=== PATIENT | male | born 1970 | race Caucasian/White ===

== ENCOUNTER 2020-09-14 20:35 | Emergency (ER) | payer BC ==
[2020-09-14 20:40] VITALS: TEMP 97.8; BMI 28.1
[2020-09-14 22:25] LABS: BASO % 0.5 % (0-2.0); EOS % 0.7 % (0-4.5); HEMATOCRIT 45.8 % (35.4-49); LYMPH % 26.9 % (8-40); MCH 28.8 pg (25.7-33.7); MCHC 34.8 g/dl (32.0-35.9); MEAN CELL VOLUME 82.7 fl (80-96); MEAN PLT VOLUME 7.8 fl (7.5-11.1); MONO % 9.4 % (3.8-10.2); NEUT % 62.5 % (42.8-82.8); PLATELET COUNT 212 10^3/uL (134-434); RBC 5.54 M/mm3 (4.00-5.60); WHITE BLOOD COUNT 7.9 K/mm3 (4.0-10.0)
[2020-09-14 22:44] LABS: CHLORIDE 101 mmol/L (98-107); SODIUM 137 mmol/L (136-145)
[2020-09-14 22:47] LABS: CALCIUM 9.6 mg/dL (8.5-10.1)
[2020-09-14 22:48] LABS: ALBUMIN 4.4 g/dl (3.4-5.0); ANION GAP 8 MMOL/L (8-16); BLOOD UREA NITROGEN 16.8 mg/dL (7-18); CO2 28 mmol/L (21-32); GLUCOSE,RANDOM 99 mg/dL (74-106)
[2020-09-14 22:50] LABS: SGOT/AST 20 U/L (15-37); SGPT/ALT 33 U/L (13-61)
[2020-09-14 22:52] LABS: BILIRUBIN,TOTAL 0.3 mg/dL (0.2-1); TOT PROT 7.7 g/dl (6.4-8.2)
[2020-09-14 22:54] LABS: ALK PHOS 61 U/L (45-117)
[2020-09-14 23:34] VITALS: BP 170/102; PULSE 86
== END 2020-09-15 02:30 | disposition home or self-care (01) ==
LOC: JER 20:35
DX: R42 Dizziness and giddiness (principal)
CPT/HCPCS: 36415; 80053; 82550; 82553; 84436; 84443; 84484; 85025; 93005; 93010; 99284-25

== ENCOUNTER 2020-10-24 04:46 | Day surgery (SDC) | payer BC ==
[2020-10-22 14:49] VITALS: BMI 28.1
[2020-10-24 11:23] VITALS: TEMP 97
[2020-10-24 12:48] VITALS: BP 130/94; PULSE 83
== END 2020-10-24 11:55 | disposition home or self-care (01) ==
LOC: JASU-ENDO 04:46
PROVIDERS: ATTEND Internal Medicine Gastroenterology
PROC: 0DB78ZX Excision of Stomach, Pylorus, Via Natural or Artificial Opening Endoscopic, Diagnostic (ICD-10-PCS; 2020-10-24)
PROC: 0DJD8ZZ Inspection of Lower Intestinal Tract, Via Natural or Artificial Opening Endoscopic (ICD-10-PCS; principal; 2020-10-24 10:30)
DX: Z12.11 Encounter for screening for malignant neoplasm of colon (principal); R12 Heartburn
CPT/HCPCS: 43239; G0121; 88305-TC; 88342-TC

== ENCOUNTER 2023-05-19 11:49 | Emergency (ER) | payer OTHER, BC ==
[2023-05-19 12:02] VITALS: PULSE 106; RESP 18; TEMP 97; BMI 28.1
[2023-05-19] MEDS ORDERED: DIPHTH,PERTUSS(ACELL),TET 0.5 ML DISP.SYRIN IM ONE (13:07)
[2023-05-19] MEDS: DIPHTH,PERTUSS(ACELL),TET 0.5 ML DISP.SYRIN IM ONE (13:08)
[2023-05-19 14:02] VITALS: BP 178/99
== END 2023-05-19 14:02 | disposition home or self-care (01) ==
LOC: JERFT 11:49
PROC: 0HQGXZZ Repair Left Hand Skin, External Approach (ICD-10-PCS; principal; 2023-05-19)
PROC: 3E0234Z Introduction of Serum, Toxoid and Vaccine into Muscle, Percutaneous Approach (ICD-10-PCS; 2023-05-19)
DX: S61.012A Laceration without foreign body of left thumb without damage to nail, initial encounter (principal); W26.0XXA Contact with knife, initial encounter; Y93.89 Activity, other specified; Y92.009 Unspecified place in unspecified non-institutional (private) residence as the place of occurrence of the external cause
CPT/HCPCS: 90715; 99282-25

== ENCOUNTER 2023-05-26 10:44 | Emergency (ER) | payer OTHER, BC ==
[2023-05-26 11:00] VITALS: RESP 18; TEMP 97.7; BMI 28.1
[2023-05-26 11:39] VITALS: BP 154/96; PULSE 90
== END 2023-05-26 11:40 | disposition home or self-care (01) ==
LOC: JERFT 10:44
DX: L08.9 Local infection of the skin and subcutaneous tissue, unspecified (principal); Z48.02 Encounter for removal of sutures
CPT/HCPCS: 99283-25

== ENCOUNTER 2024-07-29 20:04 | Observation (INO) | payer BC, OTHER ==
[2024-07-29] MEDS ORDERED: KETOROLAC TROMETHAMINE 60 MG/2 ML VIAL ONE (20:29)
[2024-07-29] MEDS: KETOROLAC TROMETHAMINE 60 MG/2 ML VIAL IM ONE (20:36)
[2024-07-29] MEDS ORDERED: LIDOCAINE 5% TOPICAL PATCH ONE (21:56)
[2024-07-29] MEDS ORDERED: ACETAMINOPHEN INJECTION 100 ML ONE (21:56)
[2024-07-29 22:00] LABS: ABSOLUTE IMMATURE GRANULOCYTES 0.02 x10^3/uL (0.0-0.031); BASOPHILS # 0.03 x10^3/uL (0.01-0.08); EOSINOPHIL % 0.2 % (0.8-7.0); EOSINOPHILS # 0.02 x10^3/uL (0.04-0.54); HEMATOCRIT 41.3 % (40.1-51.0); HEMOGLOBIN 14.7 g/dL (13.7-17.5); MCHC 35.6 g/dl (32.3-36.5); MEAN CELL VOLUME 82.1 fl (79.0-92.2); MEAN PLT VOLUME 9.6 fl (9.4-12.4); MONOCYTE # 0.75 x10^3/uL (0.30-0.82); MONOCYTE % 7.9 % (5.3-12.2); PLATELET COUNT 202 x10^3/uL (163-337); RDW 11.8 % (12.2-16.1)
[2024-07-29] MEDS: ACETAMINOPHEN 1000 MG/100 ML BAG IVPB ONE (22:03)
[2024-07-29 22:17] LABS: INR 1.05 (0.83-1.09); PROTHROMBIN TIME (PATIENT) 11.6 SEC (9.7-13.0)
[2024-07-29] MEDS: LIDOCAINE 5% TOPICAL PATCH TP ONE (22:19)
[2024-07-29 22:29] LABS: ALBUMIN 4.7 g/dl (3.4-5.0); BILIRUBIN,TOTAL 0.6 mg/dl (0.2-1); CALCIUM 9.3 mg/dl (8.5-10.1); CREATININE 0.7 mg/dl (0.6-1.3); POTASSIUM 4.2 mmol/L (3.5-5.1); TOT PROT 6.7 g/dl (6.4-8.2)
[2024-07-29] MEDS ORDERED: morphine CARPU-JECT 2 MG/1 ML DISP.SYRIN IVPUSH ONE (22:34)
[2024-07-29] MEDS ORDERED: methylPREDNISolone NA SUCC 125 MG/2 ML VIAL ONE (22:39)
[2024-07-29] MEDS ORDERED: morphine SULFATE 4 MG/ML VIAL ONE (22:39)
[2024-07-29] MEDS: morphine CARPU-JECT 4 MG/1 ML DISP.SYRIN IVPUSH ONE (22:51)
[2024-07-29] MEDS: SODIUM CHLORIDE 1,000 ML IV STA (22:52)
[2024-07-29] MEDS: methylPREDNISolone NA SUCC 125 MG/2 ML VIAL IVPB ONE (22:53)
[2024-07-30] MEDS ORDERED: HYDROmorphone HCL/PF 1 MG/ML VIAL ONE (00:03)
[2024-07-30] MEDS: HYDROmorphone HCl 2 MG/ML VIAL IVPB ONE ×2 (00:11→13:40)
[2024-07-30 06:23] VITALS: BMI 28.8
[2024-07-30] MEDS ORDERED: KETOROLAC TROMETHAMINE 15 MG/ML VIAL IVPUSH PRN (07:19)
[2024-07-30] MEDS: LEVOTHYROXINE NA 150 MCG TABLET PO SCH (07:44)
[2024-07-30 09:35] LABS: HEMATOCRIT 45.4 % (40.1-51.0); HEMOGLOBIN 16.3 g/dL (13.7-17.5); MCHC 35.9 g/dl (32.3-36.5); MEAN CELL VOLUME 80.6 fl (79.0-92.2); MEAN PLT VOLUME 10.1 fl (9.4-12.4); PLATELET COUNT 216 x10^3/uL (163-337); RDW 11.7 % (12.2-16.1)
[2024-07-30 10:09] LABS: CREATININE 0.6 mg/dl (0.6-1.3); MAGNESIUM 1.7 mg/dL (1.8-2.4); PHOSPHOROUS 3.6 (2.5-4.9); POTASSIUM 4.3 mmol/L (3.5-5.1)
[2024-07-30] MEDS: amLODIPine BESYLATE 5 MG TABLET (FP) PO SCH (12:55)
[2024-07-30] MEDS: metoPROLOL SUCCINATE 25 MG TAB.SR.24H (FP) PO SCH (12:55)
[2024-07-30] MEDS: MULTIVITAMINS (DAILY MVI) TABLET (FP) PO SCH (12:55)
[2024-07-30] MEDS: LIDOCAINE 5% TOPICAL PATCH TP SCH (13:40)
[2024-07-30] MEDS: LIDOCAINE PATCH REMOVAL MC ONE (13:40)
[2024-07-30 21:52] LABS: URINE APPEARANCE CLEAR; URINE BILIRUBIN NEGATIVE (NEGATIVE); URINE COLOR YELLOW; URINE GLUCOSE (UA) NEGATIVE (NEGATIVE); URINE KETONE NEGATIVE (NEGATIVE); URINE LEUK ESTERASE NEGATIVE (NEGATIVE); URINE NITRITE NEGATIVE (NEGATIVE); URINE PROTEIN NEGATIVE (NEGATIVE); URINE UROBILINOGEN 0.2 (0.2-1.0)
[2024-07-30 21:53] LABS: URINE RBC 0-3 /hpf (0-4); URINE WBC 0-3 (NEGATIVE)
[2024-07-30] MEDS: clonazePAM 0.5 MG TABLET PO PRN (21:55)
[2024-07-30] MEDS: LIDOCAINE PATCH REMOVAL MC SCH (22:20)
[2024-07-31 08:45] LABS: ABSOLUTE IMMATURE GRANULOCYTES 0.03 x10^3/uL (0.0-0.031); BASOPHILS # 0.01 x10^3/uL (0.01-0.08); EOSINOPHIL % 0.2 % (0.8-7.0); EOSINOPHILS # 0.02 x10^3/uL (0.04-0.54); HEMATOCRIT 46.1 % (40.1-51.0); MCHC 34.7 g/dl (32.3-36.5); MEAN CELL VOLUME 82.5 fl (79.0-92.2); MEAN PLT VOLUME 9.9 fl (9.4-12.4); MONOCYTE % 12.4 % (5.3-12.2); PLATELET COUNT 227 x10^3/uL (163-337); RDW 12.2 % (12.2-16.1)
[2024-07-31 09:25] LABS: ALBUMIN 4.7 g/dl (3.4-5.0); BILIRUBIN,TOTAL 0.8 mg/dl (0.2-1); CALCIUM 9.5 mg/dl (8.5-10.1); CREATININE 0.8 mg/dl (0.6-1.3); POTASSIUM 4.7 mmol/L (3.5-5.1); TOT PROT 6.9 g/dl (6.4-8.2)
[2024-07-31] MEDS: ACETAMINOPHEN 1000 MG/100 ML BAG IVPB PRN (17:57)
[2024-08-01 06:35] VITALS: TEMP 97.5
[2024-08-01] MEDS ORDERED: traMADol HCL 50 MG TABLET PO PRN (07:31)
[2024-08-01 10:04] VITALS: BP 147/86; PULSE 92; RESP 18
== END 2024-08-01 11:00 | disposition home or self-care (01) ==
LOC: FER 20:04 → FM/S 07-30 04:17
PROVIDERS: ATTEND Internal Medicine
PROC: 3E033NZ Introduction of Analgesics, Hypnotics, Sedatives into Peripheral Vein, Percutaneous Approach (ICD-10-PCS; principal; 2024-07-30)
PROC: 3E0233Z Introduction of Anti-inflammatory into Muscle, Percutaneous Approach (ICD-10-PCS; 2024-07-30)
PROC: 3E033GC Introduction of Other Therapeutic Substance into Peripheral Vein, Percutaneous Approach (ICD-10-PCS; 2024-07-30)
PROC: 3E0337Z Introduction of Electrolytic and Water Balance Substance into Peripheral Vein, Percutaneous Approach (ICD-10-PCS; 2024-07-30)
DX: M54.31 Sciatica, right side (principal); M54.50 Low back pain, unspecified; G89.29 Other chronic pain; F41.9 Anxiety disorder, unspecified; M25.551 Pain in right hip; K21.9 Gastro-esophageal reflux disease without esophagitis; M79.651 Pain in right thigh; E78.5 Hyperlipidemia, unspecified; E03.9 Hypothyroidism, unspecified; M19.90 Unspecified osteoarthritis, unspecified site; I10 Essential (primary) hypertension
CPT/HCPCS: 36415; 71045-TC-FY; 72193-TC; 80048; 80053; 81003; 83036; 83735; 83930; 83935; 84100; 84300; 84439; 84443; 85025; 85610; 93005; 93010; 93971-TC; 97116-GP; 97161-GP; 99285-25; G0378; Q9967